=== PATIENT | female | born 1990 | race Caucasian/White ===

== ENCOUNTER 2020-09-23 06:16 | Day surgery (SDC) | payer OTHER ==
[~2020-09-23] VITALS: Ht 165.1 cm; Wt 76.2 kg
[~2020-09-23 06:16] MED LIST: LEXAPRO10 MG PO; OMEPRAZOLE40 MG PO
[2020-09-23 06:42] LABS: HEMATOCRIT 42.6 % (36.0-48.0); MCH 28.9 pg (26.0-34.0); MCHC 32.9 g/dL (31.0-37.0); RBC 4.84 10x6/uL (4.00-5.40); RDW 12.5 % (11.5-14.5); WBC 6.5 10x3/uL (4.8-10.8)
[2020-09-23 07:21] LABS: HCG SERUM NEGATIVE (NEGATIVE)
[2020-09-23 07:31] VITALS: BP 135/87; Ht 165.1 cm; Wt 76.2 kg
--- NOTE | 2020-09-23 13:26 | NUR ---
IMPLANT: [employer]; REF # [id number] LOT #[id number] EXP DATE:04/21/2023 HALLEY HINOJOSA RN
--- NOTE | 2020-09-23 17:28 | NUR ---
1700 PT. STATES SHE IS READY TO GO HOME NOW, GETTING DRESSED. REVIEWED [facility], HAS RX. WILL RELEASE IN WC.
== END 2020-09-23 17:10 | disposition home or self-care (01) ==
LOC: D.OPS 06:16
PROVIDERS: Anesthesiology; ATTEND Obstetrics & Gynecology Maternal & Fetal Medicine
DX: N93.9 Abnormal uterine and vaginal bleeding, unspecified (principal); N94.6 Dysmenorrhea, unspecified; N39.3 Stress incontinence (female) (male); R10.2 Pelvic and perineal pain; N92.1 Excessive and frequent menstruation with irregular cycle